=== PATIENT | female | born 1975 | race Caucasian/White ===

== ENCOUNTER 2023-08-18 06:26 | Emergency (ER) | payer OTHER, SELFPAY ==
[2023-08-18 06:26] VITALS: BMI 26.1
[2023-08-18 06:28] VITALS: BP 124/80
[2023-08-18 07:21] LABS: % Basophils 1.1 % (0-2); % Eosinophils 0.8 % (0-6); % Immature Granulocytes 0.3 % (0-0.5); % Lymphocytes 18.2 % (20.5-51.1); % Monocytes 5.7 % (1.7-9.3); % Neutrophils 73.9 % (42.2-75.2); Absolute Basophils 0.1 10^3/uL (0-0.2); Absolute Eosinophils 0.1 10^3/uL (0-0.7); Absolute Lymphocytes 1.3 10^3/uL (1.2-3.4); Absolute Monocytes 0.4 10^3/uL (0.1-0.6); Absolute Neutrophils 5.4 10^3/uL (1.4-6.5); Hemoglobin 11.9 g/dL (12.0-16.0); Mean Corp Hgb Conc. 33.1 g/dL (33.0-37.0); Mean Corpuscular Hgb 30.1 pg (27.0-31.0); Mean Corpuscular Volume 91.1 fL (81.0-99.0); Mean Platelet Volume 10.6 fL (7.4-10.4); Nucleated Red Blood Cells % 0 %; Platelet Count 243 10^3/uL (130-400); Red Blood Cell Count 3.95 10^6/uL (4.20-5.40); Red Cell Dist. Width 12.7 % (11.5-14.5); White Blood Cell Count 7.3 10^3/uL (4.8-10.8)
[2023-08-18] MEDS: ZOFRAN 4 MG IV ×2 (07:23→08:18)
[2023-08-18] MEDS: TORADOL 30 MG IV (07:23)
[2023-08-18] MEDS: NSS 1000 IV (07:26)
--- NOTE | 2023-08-18 07:30 | ED.GENMED ---
History of Present Illness
General
Chief Complaint: Flank Pain
Source: patient
Time Seen by Provider: 08/18/23 07:04
Travel History
Have you had any contact with someone who has COVID-19?: No
Do you have any symptoms of coronavirus? Fever > 100 degrees, chills, cough, shortness of breath, sore throat, loss of taste or smell, muscle aches, or headache?: No
History of Present Illness
History of Present Illness:
48-year-old female with no significant past medical history presenting the emergency department for evaluation of left-sided flank pain that woke her up around 2 to 3 AM with persistent nausea and vomiting, pain described to be a constant, 9 out of
10, intermittently will radiate from the left flank area towards the left lower abdomen, sharp, no exacerbating or alleviating factors although admits to not taking anything for her symptoms prior to arrival. Denies any history of similar. Last
menstrual period finished on and she states that over the last few months these have gotten much shorter. She denies any fevers, chills, rigors, urinary symptoms, bowel changes, vaginal bleeding or discharge. Social history was
noncontributory.
Past History
Past History
ED Past Medical History: None
ED Past Surgical History: None
Social History
Tobacco: Non-smoker
Alcohol: Occasional
Drug: None
Personal:
Living: with family
Review of Systems
Review of Systems
All Other Systems: ROS reviewed and negative except as documented in HPI and ROS
Phy Exam
Physical Exam
Physical Exam:
GENERAL: Alert , appears quite uncomfortable
EYE: clear conjunctiva b/l
HEAD: NCAT
ENT: o/p clr, mmm.
CARDIAC: Regular rate and rhythm .
LUNGS: Clear breath sounds bilaterally, no acute respiratory distress, no wheezes/rales/rhonchi
ABDOMEN: Soft, diffusely tender but worse on the left lower abdomen and left flank, no r/g, negative Chatterjee sign, no tenderness at McBurney's point
NEUROLOGICAL: Alert and oriented
SKIN: Warm and dry, skin intact.
MUSCULOSKELETAL: well perfused.
PSYCH: Normal and appropriate interaction.
Scores
Heart Failure Risk
Heart Failure Risk Score: Not Applicable
Heart Score for Chest Pain Patients
STEMI patient?: Not applicable
Withdrawal Assessment of Alcohol
Withdrawal Assessment Completed?: Not applicable
Course
Orders/Labs/Results
Orders:
Orders
08/18/23 06:40
IV Insert/Care/Rem.- Treatment PRN
Test Result ONCE
08/18/23 07:05
Complete Blood Count/With Diff Urgent
Comprehensive Metabolic Panel Urgent
HCG, Serum Qualitative Screen Urgent
Lipase Urgent
Urinalysis Reflex To Culture Urgent
Date Specimen was Collected: 08/18/23
Time Specimen was Collected: 06:40
08/18/23 07:18
0.9% Sodium Chloride 1000 ml [Nss] 1,000 ml IV BOLUS
Ketorolac [Toradol] 30 mg IV NOW STA
Ondansetron Injectable [Zofran] 4 mg IV NOW STA
08/18/23 07:43
CT Abd/pelvis W Iv Cont Urgent
Comment:
Reason For Exam: left flank pain
08/18/23 08:16
Ondansetron Injectable [Zofran] 4 mg .ROUTE .STK-MED ONE
08/18/23 08:17
Ondansetron Injectable [Zofran] 4 mg IV NOW STA
08/18/23 08:45
Morphine Sulfate 4 mg IV NOW STA
08/18/23 10:02
Prochlorperazine [Compazine] 10 mg IV NOW STA
Abnormal Lab Results
08/18/23
07:05
RBC 3.95 L 10^6/uL
(4.20-5.40)
Hgb 11.9 L g/dL
(12.0-16.0)
Hct 36.0 L %
(37.0-47.0)
MPV 10.6 H fL
(7.4-10.4)
Lymphocytes % 18.2 L %
(20.5-51.1)
Potassium 3.3 L mmol/L
(3.5-5.1)
BUN 18 H mg/dl
(7-17)
Glucose 149 H mg/dl
(70-99)
08/18/23 07:05
08/18/23 07:05
Vital Signs
Initial and Last Documented VS:
Initial Vital Signs
Pulse Resp BP Pulse Ox
66 18 124/80 100
08/18/23 06:28 08/18/23 06:28 08/18/23 06:28 08/18/23 06:28
Last Documented Vital Signs
Pulse Resp BP Pulse Ox
70 18 133/80 99
08/18/23 11:50 08/18/23 11:50 08/18/23 11:50 08/18/23 11:50
MDM/Problems Addressed
Differential Diagnosis Includes:
Renal/ureteral colic, cystitis/pyelonephritis, ovarian cyst, diverticulitis
MDM/Problems Addressed:
48-year-old female presenting emergency department for evaluation of sudden onset left flank pain that awoke her from sleep earlier this morning associated with nausea and vomiting. Still currently quite uncomfortable on exam here. Patient's pain
was worse within the left costovertebral region. I suspect renal/ureteral colic to be the most likely diagnosis however given the diffuse nature of her abdominal pain we will hold off on ordering CT imaging until urinalysis results. If there is
microscopic hematuria I do's that the most likely diagnosis will be renal/ureteral colic and will obtain a noncontrast CT. If there is absence of microscopic hematuria will obtain CT with IV contrast.
*Pulse Oximetry
Patient hypoxic: no
*Critical Care Note
Total Time (30-74mins, 75-104mins- exclusive of procedures): Not Applicable
Comment
Comment:
Despite 2 doses of Zofran for nausea patient was still experiencing nausea, pain was improved following morphine. Will dose Compazine and reassess following. Ultimately would like to disposition patient home given urology would unlikely perform
procedure on patient with 3 mm stone without any significant signs of infection or kidney dysfunction.
Patient Management
Escalation/DeEscalation of care consider admission/obs:
On multiple reevaluations patient continued to feel well and ultimately felt comfortable being discharged home. Prescriptions for naproxen, Percocet, Zofran and Flomax sent to pharmacy. Information for urology provided. Stable for discharge home
and aware of return precautions
ED Attending Note
-
Portions of this chart may have been created with voice recognition software.� Occasional wrong word or��sound alike� substitutions may have occurred due to the inherent limitations of voice recognition software.
Discharge Plan
Departure
Patient Disposition: Home (Routine Discharge)
Date of Disposition: 08/18/23
Time of Disposition: 11:36
Patient with high blood pressure during this ER visit?: Yes
Discharge Problem:
Ureterolithiasis
Instructions: Kidney Stones (DC)
Prescriptions:
New
naproxen 500 mg tablet
500 mg PO BID PRN (Reason: Pain) Qty: 15 0RF
oxycodone-acetaminophen [Percocet] 5-325 mg tablet
1 tab PO Q6HPRN PRN (Reason: pain) Qty: 8 0RF
tamsulosin [Flomax] 0.4 mg capsule
0.4 mg PO DAILY Qty: 10 0RF
ondansetron 4 mg tablet,disintegrating
4 mg PO TIDPRN PRN (Reason: nausea/vomiting) Qty: 10 0RF
Referrals:
Rebeca Valencia CRNP [Family Provider] -
Calin Moody MD [Active] - (Urology - Call for appointment)
Interventions
Interventions:
*Risk Screen - Suicide Last Done: 08/18/23 06:28
*General Assessment Last Done: 08/18/23 06:28
*Neglect/Abuse Screening Last Done: 08/18/23 06:28
*Nursing Disposition Last Done: 08/18/23 11:55
HF-Zhurzy-Koxrhuxzdf Assessment Last Done: 08/18/23 07:50
ED-Female Genitourinary Assessment Last Done: 08/18/23 07:50
Discharge Date and Time
Discharge Date/Time: 08/18/23 11:55
Print Language: [id number]
[2023-08-18 07:32] LABS: HCG, Serum Qualitative Screen Negative
[2023-08-18 07:34] LABS: ALT (SGPT) 12 U/L (0-35); AST (SGOT) 25 U/L (14-36); Albumin 4.2 g/dl (3.5-5.0); Alkaline Phosphatase 48 U/L (38-126); Blood Urea Nitrogen 18 mg/dl (7-17); Calcium 9.6 mg/dl (8.4-10.2); Carbon Dioxide 25 mmol/L (22-30); Chloride 106 mmol/L (98-107); Glucose 149 mg/dl (70-99); Potassium 3.3 mmol/L (3.5-5.1); Sodium 137 mmol/L (135-145); Total Bilirubin 0.7 mg/dl (0.2-1.3); Total Protein 6.8 g/dl (6.3-8.2); eGFR > 60.00
[2023-08-18 07:35] LABS: Urine Albumin Negative (Neg - Trace); Urine Bilirubin Negative (Negative); Urine Character Slightly Cloudy (Clear); Urine Color Yellow; Urine Glucose Negative (Negative); Urine Ketone Negative (Negative); Urine Leukocyte Negative (Negative); Urine Nitrite Negative (Negative); Urine Occult Blood Negative (Negative); Urine Specific Gravity 1.015 (<1.030); Urine Urobilinogen Negative (Neg - 1+)
[2023-08-18 08:14] VITALS: BP 151/74
[2023-08-18] MEDS: MORPHINE SULFATE 4 MG IV (09:32)
[2023-08-18] MEDS: COMPAZINE 10 MG IV (10:13)
[2023-08-18 10:22] LABS: Lipase 77 U/L (23-300)
[2023-08-18 11:50] VITALS: BP 133/80
== END 2023-08-18 11:55 | disposition home or self-care (01) ==
LOC: EMR 06:26
PROVIDERS: EMERGENCY PHYSICIAN Emergency Medicine; FAMILY PHYSICIAN Nurse Practitioner Adult Health
DX: N20.1 Calculus of ureter (principal); R11.0 Nausea
CPT/HCPCS: 99285; 96375 ×3; 96361; 96374; 96376; 74177; 80053; 81003; 83690; 84703; 85025; Q9967

== ENCOUNTER → 2023-09-25 14:40 | Outpatient (REF) | payer OTHER, SELFPAY | LOC: WDC 14:40 | PROVIDERS: ATTENDING PHYSICIAN Physician Assistant; FAMILY PHYSICIAN Family Medicine | DX: Z12.31 Encounter for screening mammogram for malignant neoplasm of breast (principal) | CPT/HCPCS: 77063; 77067 ==

== ENCOUNTER → 2024-04-21 08:00 | Outpatient (REF) | payer OTHER, SELFPAY ==
[2024-04-23 11:49] LABS: Mumps Virus IgG Positive; Rubeola (Measles) IgG Positive; Varicella Zoster IgG (VZV) Positive
[2024-04-23 19:00] LABS: Quantiferon Mitogen minus NIL 9.95 IU/mL; Quantiferon NIL 0.05 IU/mL; Quantiferon Plus TB2 minus NIL 0.01 IU/mL (<=0.34); Quantiferon TB Gold Plus Negative (Negative)
[2024-04-23 20:03] LABS: Rubella Positive
== END ==
LOC: OHS 08:00
PROVIDERS: ATTENDING PHYSICIAN Nurse Practitioner Family
DX: Z23 Encounter for immunization (principal)
CPT/HCPCS: 36415; 86480; 86735; 86762; 86765; 86787

== ENCOUNTER 2024-05-25 06:15 | Day surgery (SDC) | payer BC, SELFPAY | END 2024-05-25 15:14 | disposition home or self-care (01) | LOC: GI 06:15 | PROVIDERS: ATTENDING PHYSICIAN Internal Medicine | DX: Z12.11 Encounter for screening for malignant neoplasm of colon (principal); Z80.0 Family history of malignant neoplasm of digestive organs; K63.5 Polyp of colon | CPT/HCPCS: 45380; 88305 ==

== ENCOUNTER → 2024-09-28 07:27 | Outpatient (REF) | payer OTHER, SELFPAY | LOC: WDC 07:27 | PROVIDERS: ATTENDING PHYSICIAN Obstetrics & Gynecology Gynecology | DX: Z12.31 Encounter for screening mammogram for malignant neoplasm of breast (principal) | CPT/HCPCS: 77063; 77067 ==